=== PATIENT | male | born 1935 | race Caucasian/White ===

== ENCOUNTER 2022-05-17 06:22 | Emergency (ER) | payer MEDICARE ==
[2022-05-17 06:30] VITALS: PULSE 76
[2022-05-17 08:11] VITALS: BP 151/88
== END 2022-05-17 08:11 | disposition home or self-care (01) ==
LOC: CC.ED 06:22
DX: I10 Essential (primary) hypertension (principal); Z91.048 Other nonmedicinal substance allergy status
CPT/HCPCS: 99283; 99284

== ENCOUNTER → 2023-05-19 | Day surgery (SDC) | payer MEDICARE ==
[~2023-05-19] MED LIST: Ketorolac 30 MG/ML SDV ONE; Lidocaine 0.5% 50 ML SDV ONE; Midazolam 1 MG/ML 2 ML SDV ONE; Ondansetron 4 MG/2 ML SDV ONE; Phenylephrine 1% 10 MG/ML SDV ONE; Propofol 200 MG/20 ML SDV ONE; ceFAZolin 2 GM Vial IVPUSH ONE; fentaNYL 50 MCG/ML SDV ONE
[2023-05-19] MEDS: Lactated Ringers 1,000 ML IV SCH (10:12)
[2023-05-19] MEDS: ceFAZolin 2 GM Vial IVPUSH ONE (10:46)
[2023-05-19] MEDS: Lidocaine 1% 30 ML SDV SUBCUT ONE (11:35)
[2023-05-19 16:43] VITALS: BP 112/63; PULSE 77
== END ==
LOC: CC.SDS 09:50
PROVIDERS: ATTEND Surgery
DX: G56.01 Carpal tunnel syndrome, right upper limb (principal); I10 Essential (primary) hypertension; K21.9 Gastro-esophageal reflux disease without esophagitis; Z79.899 Other long term (current) drug therapy; Z87.891 Personal history of nicotine dependence; Z88.8 Allergy status to other drugs, medicaments and biological substances
CPT/HCPCS: 01810; 99100; J0690; J1885; J2250; J2371; J2405; J2704; J3010; J3490; J7120

== ENCOUNTER 2024-04-16 12:23 | Inpatient (IN) | payer MEDICARE ==
[2024-04-16] MEDS ORDERED: Docusate Sodium 100 MG Cap PO PRN (12:32)
[2024-04-16] MEDS ORDERED: Sodium Chloride 0.9% 10 ML Syringe FLUSH PRN (12:32)
[2024-04-16] MEDS ORDERED: Ondansetron 4 MG/2 ML SDV IV PRN (12:32)
[2024-04-16] MEDS ORDERED: Ondansetron 4 MG Tab.DIS PO PRN (12:32)
[2024-04-16] MEDS: Furosemide 40 MG/4 ML VIAL IVPUSH SCH (13:25)
[2024-04-16] MEDS: Apixaban 5 MG Tab PO SCH (14:27)
[2024-04-16] MEDS ORDERED: ACETAMINOPHEN PO PRN (19:08)
[2024-04-16] MEDS ORDERED: CAFFEINE PO PRN (19:08)
[2024-04-16] MEDS ORDERED: ASPIRIN PO PRN (19:08)
[2024-04-16] MEDS ORDERED: [UNRECOGNIZED DRUG - OTHER] PO PRN (19:08)
[2024-04-16] MEDS: cloNIDine 0.1 MG Tab PO SCH (19:47)
[2024-04-16] MEDS ORDERED: Pantoprazole 40 MG Tab.CR PO PRN (21:24)
[2024-04-16] MEDS: Acetaminophen 325 MG Tab PO PRN (22:40)
[2024-04-17 07:27] LABS: BASOPHILS ABSOLUTE AUTO 0.03 10^3/uL (0.00-0.50); BASOPHILS PERCENT AUTO 0.4 % (0-1); EOSINOPHILS ABSOLUTE AUTO 0.21 10^3/uL (0.00-1.50); HEMATOCRIT 44.8 % (42.0-52.0); HEMOGLOBIN 15.2 g/dL (14.0-18.0); IMMATURE GRAN ABSOLUTE AUTO 0.01 10^3/uL (0.00-0.49); IMMATURE GRAN PERCENT AUTO 0.1 % (0.0-4.9); LYMPHOCYTES ABSOLUTE AUTO 1.29 10^3/uL (0.60-5.00); LYMPHOCYTES PERCENT AUTO 18.7 % (24-44); MEAN CORPUSCULAR HEMOGLOBIN 30.6 pg (27.0-32.0); MEAN CORPUSCULAR HGB CONC 33.9 g/dL (32.0-36.0); MEAN CORPUSCULAR VOLUME 90.1 fL (83.0-97.0); MONOCYTES ABSOLUTE AUTO 0.73 10^3/uL (0.00-1.50); MONOCYTES PERCENT AUTO 10.6 % (0-10); NEUTROPHILS ABSOLUTE AUTO 4.62 x10^3/uL (1.80-8.00); NEUTROPHILS PERCENT AUTO 67.2 % (41-71); PLATELET COUNT,PLT 159 10^3/uL (150-400); RED BLOOD CELL COUNT 4.97 x10^6/uL (4.50-6.00); WHITE BLOOD CELL COUNT,WBC 6.9 10^3/uL (4.0-11.0)
[2024-04-17] MEDS: Losartan 100 MG Tab PO SCH (07:32)
[2024-04-17] MEDS: Multivitamin Tab PO SCH (07:32)
[2024-04-17] MEDS: Hydrochlorothiazide 25 MG Tab PO SCH (07:32)
[2024-04-17 08:54] LABS: ALBUMIN 3.2 g/dL (3.4-5.0); C-REACTIVE PROTEIN 1.35 mg/dL (<=0.50); CALCIUM 9.3 mg/dL (8.4-10.1); CREATININE 1.1 mg/dL (0.7-1.3); EST CRCL DRUG DOSING (CG) 45.77 mL/min; POTASSIUM,K 3.3 mEq/L (3.5-5.0); PROTEIN TOTAL,TP 6.9 g/dL (6.4-8.2)
[2024-04-17] MEDS: BORAGE PO SCH (09:53)
[2024-04-17] MEDS: FISH OIL PO SCH (09:53)
[2024-04-17] MEDS: FLAX PO SCH (09:53)
[2024-04-17] MEDS: [UNRECOGNIZED DRUG - OTHER] PO SCH (09:53)
[2024-04-17] MEDS: Potassium Chloride 20 MEQ Tab.ER PO SCH (13:35)
[2024-04-18 07:42] LABS: BASOPHILS ABSOLUTE AUTO 0.04 10^3/uL (0.00-0.50); BASOPHILS PERCENT AUTO 0.6 % (0-1); EOSINOPHILS ABSOLUTE AUTO 0.28 10^3/uL (0.00-1.50); EOSINOPHILS PERCENT AUTO 4.1 % (0-6); LYMPHOCYTES ABSOLUTE AUTO 1.38 10^3/uL (0.60-5.00); LYMPHOCYTES PERCENT AUTO 20.4 % (24-44); MEAN CORPUSCULAR HEMOGLOBIN 30.6 pg (27.0-32.0); MEAN CORPUSCULAR HGB CONC 34.1 g/dL (32.0-36.0); MEAN CORPUSCULAR VOLUME 89.8 fL (83.0-97.0); MONOCYTES ABSOLUTE AUTO 0.76 10^3/uL (0.00-1.50); MONOCYTES PERCENT AUTO 11.2 % (0-10); NEUTROPHILS PERCENT AUTO 63.7 % (41-71); PLATELET COUNT,PLT 157 10^3/uL (150-400); WHITE BLOOD CELL COUNT,WBC 6.8 10^3/uL (4.0-11.0)
[2024-04-18 07:53] LABS: ALBUMIN 2.9 g/dL (3.4-5.0); BILIRUBIN TOTAL 0.9 mg/dL (0.0-1.0); C-REACTIVE PROTEIN 1.04 mg/dL (<=0.50); CALCIUM 9.2 mg/dL (8.4-10.1); CREATININE 1.1 mg/dL (0.7-1.3); EST CRCL DRUG DOSING (CG) 45.77 mL/min; POTASSIUM,K 3.4 mEq/L (3.5-5.0); PROTEIN TOTAL,TP 6.2 g/dL (6.4-8.2)
[2024-04-18] MEDS: Furosemide 40 MG/4 ML VIAL IVPUSH SCH (11:57)
[2024-04-19 08:01] LABS: BASOPHILS ABSOLUTE AUTO 0.05 10^3/uL (0.00-0.50); BASOPHILS PERCENT AUTO 0.7 % (0-1); EOSINOPHILS ABSOLUTE AUTO 0.34 10^3/uL (0.00-1.50); EOSINOPHILS PERCENT AUTO 5.1 % (0-6); HEMATOCRIT 43.4 % (42.0-52.0); HEMOGLOBIN 14.8 g/dL (14.0-18.0); IMMATURE GRAN ABSOLUTE AUTO 0.02 10^3/uL (0.00-0.49); IMMATURE GRAN PERCENT AUTO 0.3 % (0.0-4.9); LYMPHOCYTES ABSOLUTE AUTO 1.64 10^3/uL (0.60-5.00); LYMPHOCYTES PERCENT AUTO 24.5 % (24-44); MEAN CORPUSCULAR HEMOGLOBIN 30.8 pg (27.0-32.0); MEAN CORPUSCULAR HGB CONC 34.1 g/dL (32.0-36.0); MEAN CORPUSCULAR VOLUME 90.4 fL (83.0-97.0); MONOCYTES ABSOLUTE AUTO 0.67 10^3/uL (0.00-1.50); NEUTROPHILS ABSOLUTE AUTO 3.97 x10^3/uL (1.80-8.00); NEUTROPHILS PERCENT AUTO 59.4 % (41-71); PLATELET COUNT,PLT 162 10^3/uL (150-400); WHITE BLOOD CELL COUNT,WBC 6.7 10^3/uL (4.0-11.0)
[2024-04-19 08:17] LABS: ALBUMIN 2.9 g/dL (3.4-5.0); BILIRUBIN TOTAL 0.7 mg/dL (0.0-1.0); C-REACTIVE PROTEIN 0.73 mg/dL (<=0.50); CALCIUM 9.2 mg/dL (8.4-10.1); CREATININE 1.3 mg/dL (0.7-1.3); EST CRCL DRUG DOSING (CG) 38.73 mL/min; POTASSIUM,K 3.6 mEq/L (3.5-5.0); PROTEIN TOTAL,TP 6.3 g/dL (6.4-8.2)
[2024-04-19 15:48] VITALS: BP 111/69; PULSE 81
== END 2024-04-19 15:10 | disposition home or self-care (01) | DRG 291 ==
LOC: CC.MS 12:23 → UNDOADMIN 12:23 → CC.MS 12:32
PROVIDERS: ADMIT Physician Assistant Medical; ATTEND Physician Assistant Medical
DX: I11.0 Hypertensive heart disease with heart failure (principal); I50.31 Acute diastolic (congestive) heart failure; I48.19 Other persistent atrial fibrillation; I48.92 Unspecified atrial flutter; K21.9 Gastro-esophageal reflux disease without esophagitis; R79.89 Other specified abnormal findings of blood chemistry; I35.1 Nonrheumatic aortic (valve) insufficiency; Z88.8 Allergy status to other drugs, medicaments and biological substances; Z79.82 Long term (current) use of aspirin; Z79.899 Other long term (current) drug therapy; Z98.890 Other specified postprocedural states
CPT/HCPCS: 36415; 80053; 83880; 84484; 85025; 86140; 93005; 93306; 97110-GP; 97161-GP; A9270-GY; J1940

== ENCOUNTER 2024-08-18 14:35 | Emergency (ER) | payer MEDICARE ==
[2024-08-18 14:52] VITALS: BP 125/58; PULSE 64
[2024-08-18] MEDS: Take Home: Sulfamethoxazole/Trimethoprim 800-160 MG Tab, 6 Tab Pack PO ONE (14:59)
[2024-08-18] MEDS: Nystatin Crm 30 GM Tube TOP STA (15:24)
[2024-08-18] MEDS ORDERED: Nystatin Crm 30 GM Tube TOP SCH (20:00)
== END 2024-08-18 15:46 | disposition home or self-care (01) ==
LOC: CC.ED 14:35
DX: L08.9 Local infection of the skin and subcutaneous tissue, unspecified (principal); N48.29 Other inflammatory disorders of penis; I10 Essential (primary) hypertension; I48.91 Unspecified atrial fibrillation; Z79.899 Other long term (current) drug therapy; Z88.8 Allergy status to other drugs, medicaments and biological substances
CPT/HCPCS: 99283; A9270

== ENCOUNTER 2024-08-20 11:03 | Inpatient (IN) | payer MEDICARE ==
[2024-08-20] MEDS: Albuterol/Ipratropium 3.0-0.5 MG/3 ML Neb Soln NEB ONE (11:09)
[2024-08-20] MEDS: Albuterol/Ipratropium 3.0-0.5 MG/3 ML Neb Soln ONE (11:09)
[2024-08-20] MEDS: methylPREDNISolone Sodium Succinate 125 MG/2 ML SDV IVPUSH STA (11:17)
[2024-08-20 11:25] LABS: BASOPHILS ABSOLUTE AUTO 0.03 10^3/uL (0.00-0.50); BASOPHILS PERCENT AUTO 0.3 % (0-1); EOSINOPHILS ABSOLUTE AUTO 0.02 10^3/uL (0.00-1.50); EOSINOPHILS PERCENT AUTO 0.2 % (0-6); HEMATOCRIT 46.5 % (42.0-52.0); HEMOGLOBIN 15.5 g/dL (14.0-18.0); IMMATURE GRAN ABSOLUTE AUTO 0.03 10^3/uL (0.00-0.49); IMMATURE GRAN PERCENT AUTO 0.3 % (0.0-4.9); LYMPHOCYTES ABSOLUTE AUTO 0.82 10^3/uL (0.60-5.00); LYMPHOCYTES PERCENT AUTO 6.9 % (24-44); MEAN CORPUSCULAR HEMOGLOBIN 30.9 pg (27.0-32.0); MEAN CORPUSCULAR HGB CONC 33.3 g/dL (32.0-36.0); MEAN CORPUSCULAR VOLUME 92.6 fL (83.0-97.0); MONOCYTES ABSOLUTE AUTO 0.69 10^3/uL (0.00-1.50); MONOCYTES PERCENT AUTO 5.8 % (0-10); NEUTROPHILS ABSOLUTE AUTO 10.35 x10^3/uL (1.80-8.00); NEUTROPHILS PERCENT AUTO 86.5 % (41-71); PLATELET COUNT,PLT 199 10^3/uL (150-400); RED BLOOD CELL COUNT 5.02 x10^6/uL (4.50-6.00); WHITE BLOOD CELL COUNT,WBC 11.9 10^3/uL (4.0-11.0)
[2024-08-20 11:46] LABS: ALBUMIN 3.3 g/dL (3.4-5.0); BILIRUBIN TOTAL 0.8 mg/dL (0.0-1.0); C-REACTIVE PROTEIN 3.21 mg/dL (<=0.50); CALCIUM 10.1 mg/dL (8.4-10.1); CREATININE 1.6 mg/dL (0.7-1.3); EST CRCL DRUG DOSING (CG) 32.53 mL/min; POTASSIUM,K 4.8 mEq/L (3.5-5.0); PROTEIN TOTAL,TP 7.5 g/dL (6.4-8.2)
[2024-08-20] MEDS: Furosemide 40 MG/4 ML VIAL IVPUSH ONE (11:57)
[2024-08-20] MEDS: Ondansetron 4 MG/2 ML SDV IVPUSH ONE (12:05)
[2024-08-20 12:22] LABS: CORONAVIRUS COVID-19 NAA NEGATIVE (NEGATIVE); INFLUENZA A NAA NEGATIVE (NEGATIVE); INFLUENZA B NAA NEGATIVE (NEGATIVE); RESPIRATORY SYNCYTIAL VIR NAA NEGATIVE (NEGATIVE)
[2024-08-20] MEDS: Iopamidol 755 Mg/ML 100 ML Bottle IVPUSH ONE (12:30)
[2024-08-20] MEDS ORDERED: Sodium Chloride 0.9% 10 ML Syringe FLUSH PRN (13:19)
[2024-08-20 15:29] LABS: INR 1.16 (0.92-1.18); PROTHROMBIN TIME 12.1 SEC (9.3-11.3)
[2024-08-20] MEDS: Warfarin 5 MG Tab PO ONE (16:04)
[2024-08-20] MEDS: Furosemide 40 MG/4 ML VIAL IVPUSH SCH (16:04)
[2024-08-20] MEDS: Albuterol/Ipratropium 3.0-0.5 MG/3 ML Neb Soln NEB PRN (16:15)
[2024-08-20] MEDS: Sulfamethoxazole/Trimethoprim 800-160 MG Tab PO SCH (19:58)
[2024-08-21] MEDS: Ondansetron 4 MG Tab.DIS PO PRN (01:20)
[2024-08-21 07:40] LABS: BASOPHILS ABSOLUTE AUTO 0.01 10^3/uL (0.00-0.50); BASOPHILS PERCENT AUTO 0.1 % (0-1); HEMATOCRIT 45.5 % (42.0-52.0); HEMOGLOBIN 15.3 g/dL (14.0-18.0); IMMATURE GRAN ABSOLUTE AUTO 0.05 10^3/uL (0.00-0.49); IMMATURE GRAN PERCENT AUTO 0.4 % (0.0-4.9); LYMPHOCYTES ABSOLUTE AUTO 0.56 10^3/uL (0.60-5.00); LYMPHOCYTES PERCENT AUTO 4.2 % (24-44); MEAN CORPUSCULAR HGB CONC 33.6 g/dL (32.0-36.0); MEAN CORPUSCULAR VOLUME 92.3 fL (83.0-97.0); MONOCYTES ABSOLUTE AUTO 0.69 10^3/uL (0.00-1.50); MONOCYTES PERCENT AUTO 5.1 % (0-10); NEUTROPHILS ABSOLUTE AUTO 12.17 x10^3/uL (1.80-8.00); NEUTROPHILS PERCENT AUTO 90.2 % (41-71); PLATELET COUNT,PLT 170 10^3/uL (150-400); RED BLOOD CELL COUNT 4.93 x10^6/uL (4.50-6.00); WHITE BLOOD CELL COUNT,WBC 13.5 10^3/uL (4.0-11.0)
[2024-08-21 07:48] LABS: INR 1.22 (0.92-1.18); PROTHROMBIN TIME 12.7 SEC (9.3-11.3)
[2024-08-21] MEDS: Metoprolol Succinate 100 MG Tab.ER PO SCH (07:48)
[2024-08-21] MEDS: Lactobacillus Rhamnosus GG (Probiotic) Cap PO SCH (07:48)
[2024-08-21] MEDS: Losartan 100 MG Tab PO SCH (07:48)
[2024-08-21] MEDS: Multivitamin Tab PO SCH (07:48)
[2024-08-21] MEDS: Potassium Chloride 20 MEQ Tab.ER PO SCH (07:48)
[2024-08-21] MEDS: Ascorbic Acid 500 MG Tab PO SCH (07:49)
[2024-08-21] MEDS: Cholecalciferol (Vitamin D3) 25 MCG Tab PO SCH (07:49)
[2024-08-21] MEDS: Calcium Carbonate 500 MG Tab.Chew PO SCH (07:49)
[2024-08-21 08:32] LABS: ALBUMIN 3.2 g/dL (3.4-5.0); BILIRUBIN TOTAL 0.5 mg/dL (0.0-1.0); C-REACTIVE PROTEIN 2.75 mg/dL (<=0.50); CALCIUM 9.6 mg/dL (8.4-10.1); CREATININE 1.6 mg/dL (0.7-1.3); EST CRCL DRUG DOSING (CG) 32.53 mL/min; POTASSIUM,K 4.6 mEq/L (3.5-5.0); PROTEIN TOTAL,TP 7.4 g/dL (6.4-8.2)
[2024-08-21] MEDS: Ondansetron 4 MG/2 ML SDV IV PRN (10:15)
[2024-08-21] MEDS: Warfarin 5 MG Tab PO ONE (11:05)
[2024-08-21] MEDS: Meclizine 12.5 MG Tab PO SCH (19:56)
[2024-08-22 07:50] LABS: INR 1.7 (0.92-1.18); PROTHROMBIN TIME 17.4 SEC (9.3-11.3)
[2024-08-22 07:51] LABS: BASOPHILS ABSOLUTE AUTO 0.02 10^3/uL (0.00-0.50); BASOPHILS PERCENT AUTO 0.1 % (0-1); EOSINOPHILS ABSOLUTE AUTO 0.02 10^3/uL (0.00-1.50); EOSINOPHILS PERCENT AUTO 0.1 % (0-6); HEMATOCRIT 43.6 % (42.0-52.0); HEMOGLOBIN 14.4 g/dL (14.0-18.0); IMMATURE GRAN ABSOLUTE AUTO 0.07 10^3/uL (0.00-0.49); IMMATURE GRAN PERCENT AUTO 0.5 % (0.0-4.9); LYMPHOCYTES ABSOLUTE AUTO 1.16 10^3/uL (0.60-5.00); LYMPHOCYTES PERCENT AUTO 8.1 % (24-44); MEAN CORPUSCULAR HEMOGLOBIN 31.1 pg (27.0-32.0); MEAN CORPUSCULAR VOLUME 94.2 fL (83.0-97.0); MONOCYTES ABSOLUTE AUTO 1.14 10^3/uL (0.00-1.50); NEUTROPHILS ABSOLUTE AUTO 11.86 x10^3/uL (1.80-8.00); NEUTROPHILS PERCENT AUTO 83.2 % (41-71); PLATELET COUNT,PLT 192 10^3/uL (150-400); RED BLOOD CELL COUNT 4.63 x10^6/uL (4.50-6.00); WHITE BLOOD CELL COUNT,WBC 14.3 10^3/uL (4.0-11.0)
[2024-08-22 08:03] LABS: ALBUMIN 2.9 g/dL (3.4-5.0); BILIRUBIN TOTAL 0.6 mg/dL (0.0-1.0); C-REACTIVE PROTEIN 1.49 mg/dL (<=0.50); CALCIUM 9.9 mg/dL (8.4-10.1); CREATININE 1.5 mg/dL (0.7-1.3); EST CRCL DRUG DOSING (CG) 34.7 mL/min; POTASSIUM,K 4.9 mEq/L (3.5-5.0); PROTEIN TOTAL,TP 6.8 g/dL (6.4-8.2)
[2024-08-22] MEDS: Acetaminophen 325 MG Tab PO PRN (09:06)
[2024-08-22] MEDS: Warfarin 5 MG Tab PO ONE (15:47)
[2024-08-23 06:58] LABS: BASOPHILS ABSOLUTE AUTO 0.02 10^3/uL (0.00-0.50); BASOPHILS PERCENT AUTO 0.2 % (0-1); EOSINOPHILS ABSOLUTE AUTO 0.08 10^3/uL (0.00-1.50); EOSINOPHILS PERCENT AUTO 0.6 % (0-6); HEMATOCRIT 42.1 % (42.0-52.0); HEMOGLOBIN 14.3 g/dL (14.0-18.0); IMMATURE GRAN ABSOLUTE AUTO 0.04 10^3/uL (0.00-0.49); IMMATURE GRAN PERCENT AUTO 0.3 % (0.0-4.9); LYMPHOCYTES ABSOLUTE AUTO 1.03 10^3/uL (0.60-5.00); LYMPHOCYTES PERCENT AUTO 7.8 % (24-44); MEAN CORPUSCULAR HEMOGLOBIN 31.4 pg (27.0-32.0); MEAN CORPUSCULAR VOLUME 92.5 fL (83.0-97.0); MONOCYTES ABSOLUTE AUTO 1.18 10^3/uL (0.00-1.50); NEUTROPHILS ABSOLUTE AUTO 10.82 x10^3/uL (1.80-8.00); NEUTROPHILS PERCENT AUTO 82.1 % (41-71); PLATELET COUNT,PLT 187 10^3/uL (150-400); RED BLOOD CELL COUNT 4.55 x10^6/uL (4.50-6.00); WHITE BLOOD CELL COUNT,WBC 13.2 10^3/uL (4.0-11.0)
[2024-08-23] MEDS: Metoprolol Succinate 100 MG Tab.ER PO SCH (07:35)
[2024-08-23 07:41] LABS: INR 1.8 (0.92-1.18); PROTHROMBIN TIME 18.4 SEC (9.3-11.3)
[2024-08-23 08:05] LABS: ALBUMIN 2.9 g/dL (3.4-5.0); BILIRUBIN TOTAL 0.8 mg/dL (0.0-1.0); C-REACTIVE PROTEIN 1.97 mg/dL (<=0.50); CREATININE 1.5 mg/dL (0.7-1.3); EST CRCL DRUG DOSING (CG) 34.7 mL/min; POTASSIUM,K 4.4 mEq/L (3.5-5.0); PROTEIN TOTAL,TP 6.9 g/dL (6.4-8.2)
[2024-08-23] MEDS: Cyclobenzaprine 10 MG Tab PO PRN (08:54)
[2024-08-23] MEDS: Lidocaine 4% Patch TOP ONE (08:55)
[2024-08-23] MEDS: Bumetanide 2.5 MG/10 ML MDV IVPUSH ONE (09:09)
[2024-08-23] MEDS: Albumin Human 25 GM in Premix Bag 1 BAG IV ONE (09:14)
[2024-08-23] MEDS: HYDROmorphone 0.5 MG/0.5 ML Syringe IVPUSH ONE (09:40)
[2024-08-23 10:29] LABS: APPEARANCE,URINE CLEAR (CLEAR); BILIRUBIN,URINE NEGATIVE (NEGATIVE); COLOR,URINE YELLOW (YELLOW); GLUCOSE,URINE NEGATIVE (NEGATIVE); KETONES,URINE NEGATIVE (NEGATIVE); LEUKOCYTE ESTERASE,URINE NEGATIVE (NEGATIVE); NITRITE,URINE NEGATIVE (NEGATIVE); OCCULT BLOOD,URINE NEGATIVE (NEGATIVE); PH,URINE 6.5 (4.5-8.0); PROTEIN,URINE NEGATIVE (NEGATIVE); UROBILINOGEN,URINE 0.2 EU/dL (0.2-1.0)
[2024-08-23] MEDS: Warfarin 5 MG Tab PO SCH (11:46)
[2024-08-23] MEDS ORDERED: Meclizine 12.5 MG Tab PO PRN (14:38)
[2024-08-23] MEDS: Bumetanide 2.5 MG/10 ML MDV IVPUSH SCH (16:08)
[2024-08-23] MEDS: Diazepam 5 MG Tab PO PRN (16:37)
[2024-08-23] MEDS ORDERED: OLANZapine 10 MG Vial IM PRN (19:34)
[2024-08-23] MEDS: OLANZapine 10 MG Vial IM ONE (19:44)
[2024-08-24 07:20] VITALS: PULSE 78
[2024-08-24] MEDS: Lidocaine 4% Patch TOP SCH (07:22)
[2024-08-24 07:33] VITALS: BP 125/65
[2024-08-24 07:39] LABS: BASOPHILS ABSOLUTE AUTO 0.03 10^3/uL (0.00-0.50); BASOPHILS PERCENT AUTO 0.2 % (0-1); EOSINOPHILS ABSOLUTE AUTO 0.05 10^3/uL (0.00-1.50); EOSINOPHILS PERCENT AUTO 0.4 % (0-6); HEMATOCRIT 41.2 % (42.0-52.0); HEMOGLOBIN 13.9 g/dL (14.0-18.0); IMMATURE GRAN ABSOLUTE AUTO 0.04 10^3/uL (0.00-0.49); IMMATURE GRAN PERCENT AUTO 0.3 % (0.0-4.9); LYMPHOCYTES ABSOLUTE AUTO 0.94 10^3/uL (0.60-5.00); LYMPHOCYTES PERCENT AUTO 7.1 % (24-44); MEAN CORPUSCULAR HEMOGLOBIN 31.1 pg (27.0-32.0); MEAN CORPUSCULAR HGB CONC 33.7 g/dL (32.0-36.0); MEAN CORPUSCULAR VOLUME 92.2 fL (83.0-97.0); MONOCYTES ABSOLUTE AUTO 1.35 10^3/uL (0.00-1.50); MONOCYTES PERCENT AUTO 10.3 % (0-10); NEUTROPHILS ABSOLUTE AUTO 10.75 x10^3/uL (1.80-8.00); NEUTROPHILS PERCENT AUTO 81.7 % (41-71); PLATELET COUNT,PLT 177 10^3/uL (150-400); RED BLOOD CELL COUNT 4.47 x10^6/uL (4.50-6.00); WHITE BLOOD CELL COUNT,WBC 13.2 10^3/uL (4.0-11.0)
[2024-08-24 07:52] LABS: INR 2.4 (0.92-1.18); PROTHROMBIN TIME 24.2 SEC (9.3-11.3)
[2024-08-24 08:07] LABS: CALCIUM 9.9 mg/dL (8.4-10.1); CREATININE 1.6 mg/dL (0.7-1.3); EST CRCL DRUG DOSING (CG) 32.53 mL/min; MAGNESIUM 2.6 mg/dL (1.8-2.4); POTASSIUM,K 4.1 mEq/L (3.5-5.0)
== END 2024-08-24 11:00 | disposition swing bed (61) | DRG 291 ==
LOC: CC.ED 11:03 → UNDOADMIN 12:12 → CC.MS 12:12 → UNDODISIN 08-22 11:37 → CC.MS 08-24 09:04 → UNDODISIN 08-24 10:25
PROVIDERS: ADMIT Physician Assistant Medical; ATTEND Physician Assistant Medical
DX: I11.0 Hypertensive heart disease with heart failure (principal); I50.33 Acute on chronic diastolic (congestive) heart failure; I50.9 Heart failure, unspecified; K21.9 Gastro-esophageal reflux disease without esophagitis; Z91.048 Other nonmedicinal substance allergy status; I25.10 Atherosclerotic heart disease of native coronary artery without angina pectoris; I48.0 Paroxysmal atrial fibrillation; Z51.5 Encounter for palliative care; Z87.891 Personal history of nicotine dependence; Z79.899 Other long term (current) drug therapy; Z88.8 Allergy status to other drugs, medicaments and biological substances; Z98.890 Other specified postprocedural states; Z66 Do not resuscitate
CPT/HCPCS: 0241U; 36415; 70450; 71045; 71275; 72100; 72125; 72131; 80048; 80053; 81003; 83735; 83880; 84484; 85025; 85379; 85610; 86140; 93005; 93010; 94640; 96374; 96375; 97110-GP; 97161-GP; 99285-25; A9270-GY; J1939; J1940; J2359; J2405; J2919; J3360; P9047; Q9967

== ENCOUNTER 2024-08-24 10:38 | Inpatient (IN) | payer MEDICAID, MEDICARE ==
[2024-08-24] MEDS ORDERED: Ondansetron 4 MG/2 ML SDV IV PRN (11:25)
[2024-08-24] MEDS ORDERED: OLANZapine 10 MG Vial IM PRN (11:25)
[2024-08-24] MEDS ORDERED: Meclizine 12.5 MG Tab PO PRN (11:25)
[2024-08-24] MEDS ORDERED: Sodium Chloride 0.9% 10 ML Syringe FLUSH PRN (11:25)
[2024-08-24] MEDS: Warfarin 5 MG Tab PO SCH (12:13)
[2024-08-24] MEDS: Bumetanide 1 MG Tab PO SCH (16:21)
[2024-08-24] MEDS: risperiDONE 0.25 MG Tab PO SCH (19:28)
[2024-08-25] MEDS: Calcium Carbonate 500 MG Tab.Chew PO SCH (07:38)
[2024-08-25] MEDS: Multivitamin Tab PO SCH (07:38)
[2024-08-25] MEDS: Lactobacillus Rhamnosus GG (Probiotic) Cap PO SCH (07:38)
[2024-08-25] MEDS: Metoprolol Succinate 100 MG Tab.ER PO SCH (07:39)
[2024-08-25] MEDS: Ascorbic Acid 500 MG Tab PO SCH (07:39)
[2024-08-25] MEDS: Potassium Chloride 20 MEQ Tab.ER PO SCH (07:40)
[2024-08-25] MEDS: Lidocaine 4% Patch TOP SCH (07:40)
[2024-08-25] MEDS: Losartan 100 MG Tab PO SCH (07:40)
[2024-08-25] MEDS: Cholecalciferol (Vitamin D3) 25 MCG Tab PO SCH (07:40)
[2024-08-25 08:07] LABS: INR 3.14 (0.92-1.18); PROTHROMBIN TIME 31.2 SEC (9.3-11.3)
[2024-08-25] MEDS: Warfarin 2.5 MG Tab PO ONE (12:17)
[2024-08-25] MEDS: Polyethylene Glycol 3350 Powder 17 GM Packet PO SCH (12:37)
[2024-08-26] MEDS: Acetaminophen 325 MG Tab PO PRN (01:22)
[2024-08-26 08:27] LABS: INR 2.14 (0.92-1.18); PROTHROMBIN TIME 21.6 SEC (9.3-11.3)
[2024-08-26] MEDS: Albuterol/Ipratropium 3.0-0.5 MG/3 ML Neb Soln NEB PRN (10:49)
[2024-08-26] MEDS: Warfarin** 1 MG TABLET PO ONE (12:41)
[2024-08-27] MEDS: Diazepam 5 MG Tab PO PRN (05:26)
[2024-08-27 08:06] LABS: INR 1.91 (0.92-1.18); PROTHROMBIN TIME 19.4 SEC (9.3-11.3)
[2024-08-27 08:15] LABS: BASOPHILS ABSOLUTE AUTO 0.03 10^3/uL (0.00-0.50); BASOPHILS PERCENT AUTO 0.3 % (0-1); EOSINOPHILS ABSOLUTE AUTO 0.21 10^3/uL (0.00-1.50); EOSINOPHILS PERCENT AUTO 2.1 % (0-6); HEMATOCRIT 34.5 % (42.0-52.0); HEMOGLOBIN 11.5 g/dL (14.0-18.0); IMMATURE GRAN ABSOLUTE AUTO 0.04 10^3/uL (0.00-0.49); IMMATURE GRAN PERCENT AUTO 0.4 % (0.0-4.9); LYMPHOCYTES ABSOLUTE AUTO 0.91 10^3/uL (0.60-5.00); MEAN CORPUSCULAR HEMOGLOBIN 31.3 pg (27.0-32.0); MEAN CORPUSCULAR HGB CONC 33.3 g/dL (32.0-36.0); MONOCYTES ABSOLUTE AUTO 0.78 10^3/uL (0.00-1.50); MONOCYTES PERCENT AUTO 7.7 % (0-10); NEUTROPHILS PERCENT AUTO 80.5 % (41-71); PLATELET COUNT,PLT 188 10^3/uL (150-400); RED BLOOD CELL COUNT 3.67 x10^6/uL (4.50-6.00); WHITE BLOOD CELL COUNT,WBC 10.1 10^3/uL (4.0-11.0)
[2024-08-27 08:25] LABS: CALCIUM 9.7 mg/dL (8.4-10.1); CREATININE 1.8 mg/dL (0.7-1.3); EST CRCL DRUG DOSING (CG) 26.09 mL/min; POTASSIUM,K 4.2 mEq/L (3.5-5.0)
[2024-08-27] MEDS: Warfarin 2 MG Tab PO ONE (12:29)
[2024-08-28 07:58] LABS: BASOPHILS ABSOLUTE AUTO 0.04 10^3/uL (0.00-0.50); BASOPHILS PERCENT AUTO 0.4 % (0-1); EOSINOPHILS PERCENT AUTO 2.9 % (0-6); HEMATOCRIT 38.3 % (42.0-52.0); HEMOGLOBIN 12.6 g/dL (14.0-18.0); IMMATURE GRAN ABSOLUTE AUTO 0.06 10^3/uL (0.00-0.49); IMMATURE GRAN PERCENT AUTO 0.6 % (0.0-4.9); LYMPHOCYTES ABSOLUTE AUTO 1.44 10^3/uL (0.60-5.00); LYMPHOCYTES PERCENT AUTO 14.1 % (24-44); MEAN CORPUSCULAR HEMOGLOBIN 31.1 pg (27.0-32.0); MEAN CORPUSCULAR HGB CONC 32.9 g/dL (32.0-36.0); MEAN CORPUSCULAR VOLUME 94.6 fL (83.0-97.0); MONOCYTES PERCENT AUTO 9.8 % (0-10); NEUTROPHILS ABSOLUTE AUTO 7.37 x10^3/uL (1.80-8.00); NEUTROPHILS PERCENT AUTO 72.2 % (41-71); PLATELET COUNT,PLT 229 10^3/uL (150-400); RED BLOOD CELL COUNT 4.05 x10^6/uL (4.50-6.00); WHITE BLOOD CELL COUNT,WBC 10.2 10^3/uL (4.0-11.0)
[2024-08-28 08:03] LABS: INR 1.9 (0.92-1.18); PROTHROMBIN TIME 18.8 SEC (9.3-11.3)
[2024-08-28] MEDS: Warfarin 2 MG Tab PO SCH (11:58)
[2024-08-28] MEDS: Warfarin** 1 MG TABLET PO ONE (12:00)
[2024-08-29 07:30] LABS: INR 1.77 (0.92-1.18); PROTHROMBIN TIME 17.7 SEC (9.3-11.3)
[2024-08-29] MEDS: Warfarin 5 MG Tab PO SCH (12:19)
[2024-08-30 08:18] LABS: INR 1.83 (0.92-1.18); PROTHROMBIN TIME 18.2 SEC (9.3-11.3)
[2024-08-30] MEDS: Apixaban 5 MG Tab PO ONE (10:11)
[2024-08-30] MEDS: Apixaban 5 MG Tab PO SCH (19:36)
[2024-08-31] MEDS: Metoprolol Succinate 25 MG Tab.ER PO SCH (08:11)
[2024-08-31] MEDS: Sodium Chloride 0.9% 10 ML Syringe FLUSH PRN (08:14)
[2024-08-31] MEDS: Ondansetron 4 MG Tab.DIS PO PRN (13:15)
[2024-09-01 08:11] LABS: ALBUMIN 2.6 g/dL (3.4-5.0); BILIRUBIN TOTAL 0.7 mg/dL (0.0-1.0); CALCIUM 9.9 mg/dL (8.4-10.1); EST CRCL DRUG DOSING (CG) 23.48 mL/min; PROTEIN TOTAL,TP 6.8 g/dL (6.4-8.2)
[2024-09-03] MEDS: Melatonin 3 MG Tab PO PRN (19:58)
[2024-09-05 09:03] LABS: BASOPHILS ABSOLUTE AUTO 0.05 10^3/uL (0.00-0.50); BASOPHILS PERCENT AUTO 0.6 % (0-1); EOSINOPHILS ABSOLUTE AUTO 0.18 10^3/uL (0.00-1.50); EOSINOPHILS PERCENT AUTO 2.1 % (0-6); HEMATOCRIT 35.6 % (42.0-52.0); HEMOGLOBIN 11.4 g/dL (14.0-18.0); IMMATURE GRAN ABSOLUTE AUTO 0.02 10^3/uL (0.00-0.49); IMMATURE GRAN PERCENT AUTO 0.2 % (0.0-4.9); LYMPHOCYTES ABSOLUTE AUTO 0.97 10^3/uL (0.60-5.00); LYMPHOCYTES PERCENT AUTO 11.5 % (24-44); MEAN CORPUSCULAR HEMOGLOBIN 30.7 pg (27.0-32.0); MONOCYTES ABSOLUTE AUTO 0.46 10^3/uL (0.00-1.50); MONOCYTES PERCENT AUTO 5.5 % (0-10); NEUTROPHILS ABSOLUTE AUTO 6.74 x10^3/uL (1.80-8.00); NEUTROPHILS PERCENT AUTO 80.1 % (41-71); PLATELET COUNT,PLT 218 10^3/uL (150-400); RED BLOOD CELL COUNT 3.71 x10^6/uL (4.50-6.00); WHITE BLOOD CELL COUNT,WBC 8.4 10^3/uL (4.0-11.0)
[2024-09-05 09:22] LABS: ALBUMIN 2.6 g/dL (3.4-5.0); BILIRUBIN TOTAL 0.6 mg/dL (0.0-1.0); CALCIUM 9.8 mg/dL (8.4-10.1); EST CRCL DRUG DOSING (CG) 23.48 mL/min; POTASSIUM,K 3.9 mEq/L (3.5-5.0); PROTEIN TOTAL,TP 6.6 g/dL (6.4-8.2)
[2024-09-05] MEDS: Spironolactone 25 MG Tab PO ONE (13:18)
[2024-09-05] MEDS: Oxyquinoline/Emollient 0.3% Oint 4 OZ Canister TOP PRN (16:27)
[2024-09-05 16:41] LABS: APPEARANCE,URINE CLEAR (CLEAR); BILIRUBIN,URINE NEGATIVE (NEGATIVE); COLOR,URINE YELLOW (YELLOW); GLUCOSE,URINE NEGATIVE (NEGATIVE); KETONES,URINE NEGATIVE (NEGATIVE); LEUKOCYTE ESTERASE,URINE NEGATIVE (NEGATIVE); NITRITE,URINE NEGATIVE (NEGATIVE); OCCULT BLOOD,URINE SMALL (NEGATIVE); PROTEIN,URINE NEGATIVE (NEGATIVE); UROBILINOGEN,URINE 0.2 EU/dL (0.2-1.0)
[2024-09-05 16:53] LABS: BACTERIA,URINE RARE /HPF (NOT SEEN); EPITHELIAL CELLS,URINE NOT SEEN /HPF (NOT SEEN); MUCUS,URINE NOT SEEN /HPF (NOT SEEN); WBC,URINE 0-5 /HPF (0-5)
[2024-09-06 07:34] LABS: BASOPHILS ABSOLUTE AUTO 0.04 10^3/uL (0.00-0.50); BASOPHILS PERCENT AUTO 0.3 % (0-1); EOSINOPHILS ABSOLUTE AUTO 0.11 10^3/uL (0.00-1.50); EOSINOPHILS PERCENT AUTO 0.8 % (0-6); HEMATOCRIT 37.1 % (42.0-52.0); HEMOGLOBIN 12.1 g/dL (14.0-18.0); IMMATURE GRAN ABSOLUTE AUTO 0.04 10^3/uL (0.00-0.49); IMMATURE GRAN PERCENT AUTO 0.3 % (0.0-4.9); LYMPHOCYTES ABSOLUTE AUTO 1.03 10^3/uL (0.60-5.00); LYMPHOCYTES PERCENT AUTO 7.5 % (24-44); MEAN CORPUSCULAR HEMOGLOBIN 31.5 pg (27.0-32.0); MEAN CORPUSCULAR HGB CONC 32.6 g/dL (32.0-36.0); MEAN CORPUSCULAR VOLUME 96.6 fL (83.0-97.0); MONOCYTES ABSOLUTE AUTO 1.06 10^3/uL (0.00-1.50); MONOCYTES PERCENT AUTO 7.8 % (0-10); NEUTROPHILS ABSOLUTE AUTO 11.37 x10^3/uL (1.80-8.00); NEUTROPHILS PERCENT AUTO 83.3 % (41-71); PLATELET COUNT,PLT 268 10^3/uL (150-400); RED BLOOD CELL COUNT 3.84 x10^6/uL (4.50-6.00); WHITE BLOOD CELL COUNT,WBC 13.7 10^3/uL (4.0-11.0)
[2024-09-06 07:54] LABS: CALCIUM 10.3 mg/dL (8.4-10.1); EST CRCL DRUG DOSING (CG) 23.48 mL/min; POTASSIUM,K 5.1 mEq/L (3.5-5.0)
[2024-09-06] MEDS: Spironolactone 25 MG Tab PO SCH (08:17)
[2024-09-06] MEDS: Piperacillin/Tazobactam 4.5 GM in Sodium Chloride 0.9% 100 ML IV ONE (14:26)
[2024-09-06] MEDS: VANCOmycin 1.25 GM/250 ML 1.25 GM in Premix Bag 1 BAG IV ONE (15:10)
[2024-09-06] MEDS: Piperacillin/Tazobactam 4.5 GM in Sodium Chloride 0.9% 100 ML IV SCH (18:13)
[2024-09-07 07:41] LABS: BASOPHILS ABSOLUTE AUTO 0.05 10^3/uL (0.00-0.50); BASOPHILS PERCENT AUTO 0.6 % (0-1); EOSINOPHILS PERCENT AUTO 2.3 % (0-6); HEMATOCRIT 34.4 % (42.0-52.0); HEMOGLOBIN 11.1 g/dL (14.0-18.0); IMMATURE GRAN ABSOLUTE AUTO 0.03 10^3/uL (0.00-0.49); IMMATURE GRAN PERCENT AUTO 0.3 % (0.0-4.9); LYMPHOCYTES ABSOLUTE AUTO 0.77 10^3/uL (0.60-5.00); LYMPHOCYTES PERCENT AUTO 8.9 % (24-44); MEAN CORPUSCULAR HEMOGLOBIN 31.4 pg (27.0-32.0); MEAN CORPUSCULAR HGB CONC 32.3 g/dL (32.0-36.0); MEAN CORPUSCULAR VOLUME 97.5 fL (83.0-97.0); MONOCYTES ABSOLUTE AUTO 0.69 10^3/uL (0.00-1.50); NEUTROPHILS ABSOLUTE AUTO 6.87 x10^3/uL (1.80-8.00); NEUTROPHILS PERCENT AUTO 79.9 % (41-71); PLATELET COUNT,PLT 219 10^3/uL (150-400); RED BLOOD CELL COUNT 3.53 x10^6/uL (4.50-6.00); WHITE BLOOD CELL COUNT,WBC 8.6 10^3/uL (4.0-11.0)
[2024-09-07 07:43] LABS: CALCIUM 9.5 mg/dL (8.4-10.1); CREATININE 1.9 mg/dL (0.7-1.3); EST CRCL DRUG DOSING (CG) 24.72 mL/min; POTASSIUM,K 4.5 mEq/L (3.5-5.0)
[2024-09-07] MEDS: VANCOmycin 750 MG in Sodium Chloride 0.9% 250 ML IV SCH (15:46)
[2024-09-08 07:41] LABS: BASOPHILS ABSOLUTE AUTO 0.05 10^3/uL (0.00-0.50); BASOPHILS PERCENT AUTO 0.5 % (0-1); EOSINOPHILS ABSOLUTE AUTO 0.18 10^3/uL (0.00-1.50); HEMATOCRIT 37.1 % (42.0-52.0); HEMOGLOBIN 11.7 g/dL (14.0-18.0); IMMATURE GRAN ABSOLUTE AUTO 0.02 10^3/uL (0.00-0.49); IMMATURE GRAN PERCENT AUTO 0.2 % (0.0-4.9); LYMPHOCYTES PERCENT AUTO 8.8 % (24-44); MEAN CORPUSCULAR HEMOGLOBIN 30.8 pg (27.0-32.0); MEAN CORPUSCULAR HGB CONC 31.5 g/dL (32.0-36.0); MEAN CORPUSCULAR VOLUME 97.6 fL (83.0-97.0); MONOCYTES ABSOLUTE AUTO 0.88 10^3/uL (0.00-1.50); MONOCYTES PERCENT AUTO 9.7 % (0-10); NEUTROPHILS ABSOLUTE AUTO 7.18 x10^3/uL (1.80-8.00); NEUTROPHILS PERCENT AUTO 78.8 % (41-71); PLATELET COUNT,PLT 220 10^3/uL (150-400); WHITE BLOOD CELL COUNT,WBC 9.1 10^3/uL (4.0-11.0)
[2024-09-08 07:45] LABS: CALCIUM 9.6 mg/dL (8.4-10.1); CREATININE 1.9 mg/dL (0.7-1.3); EST CRCL DRUG DOSING (CG) 24.72 mL/min; POTASSIUM,K 4.5 mEq/L (3.5-5.0)
[2024-09-09 08:16] LABS: POTASSIUM,K 3.8 mEq/L (3.5-5.0)
[2024-09-09 08:17] LABS: BASOPHILS ABSOLUTE AUTO 0.04 10^3/uL (0.00-0.50); BASOPHILS PERCENT AUTO 0.5 % (0-1); CALCIUM 9.5 mg/dL (8.4-10.1); CREATININE 1.8 mg/dL (0.7-1.3); EOSINOPHILS ABSOLUTE AUTO 0.21 10^3/uL (0.00-1.50); EOSINOPHILS PERCENT AUTO 2.9 % (0-6); EST CRCL DRUG DOSING (CG) 26.09 mL/min; HEMOGLOBIN 11.5 g/dL (14.0-18.0); IMMATURE GRAN ABSOLUTE AUTO 0.02 10^3/uL (0.00-0.49); IMMATURE GRAN PERCENT AUTO 0.3 % (0.0-4.9); LYMPHOCYTES ABSOLUTE AUTO 0.93 10^3/uL (0.60-5.00); LYMPHOCYTES PERCENT AUTO 12.7 % (24-44); MEAN CORPUSCULAR HEMOGLOBIN 31.2 pg (27.0-32.0); MEAN CORPUSCULAR HGB CONC 31.9 g/dL (32.0-36.0); MEAN CORPUSCULAR VOLUME 97.6 fL (83.0-97.0); MONOCYTES ABSOLUTE AUTO 0.76 10^3/uL (0.00-1.50); MONOCYTES PERCENT AUTO 10.4 % (0-10); NEUTROPHILS ABSOLUTE AUTO 5.35 x10^3/uL (1.80-8.00); NEUTROPHILS PERCENT AUTO 73.2 % (41-71); PLATELET COUNT,PLT 203 10^3/uL (150-400); RED BLOOD CELL COUNT 3.69 x10^6/uL (4.50-6.00); WHITE BLOOD CELL COUNT,WBC 7.3 10^3/uL (4.0-11.0)
[2024-09-09] MEDS ORDERED: Polyethylene Glycol 3350 Powder 17 GM Packet PO PRN (11:42)
[2024-09-10 07:57] LABS: BASOPHILS ABSOLUTE AUTO 0.03 10^3/uL (0.00-0.50); BASOPHILS PERCENT AUTO 0.4 % (0-1); EOSINOPHILS ABSOLUTE AUTO 0.18 10^3/uL (0.00-1.50); EOSINOPHILS PERCENT AUTO 2.4 % (0-6); HEMATOCRIT 36.9 % (42.0-52.0); HEMOGLOBIN 11.7 g/dL (14.0-18.0); IMMATURE GRAN ABSOLUTE AUTO 0.02 10^3/uL (0.00-0.49); IMMATURE GRAN PERCENT AUTO 0.3 % (0.0-4.9); LYMPHOCYTES ABSOLUTE AUTO 1.01 10^3/uL (0.60-5.00); LYMPHOCYTES PERCENT AUTO 13.5 % (24-44); MEAN CORPUSCULAR HEMOGLOBIN 30.9 pg (27.0-32.0); MEAN CORPUSCULAR HGB CONC 31.7 g/dL (32.0-36.0); MEAN CORPUSCULAR VOLUME 97.4 fL (83.0-97.0); MONOCYTES ABSOLUTE AUTO 0.73 10^3/uL (0.00-1.50); MONOCYTES PERCENT AUTO 9.7 % (0-10); NEUTROPHILS ABSOLUTE AUTO 5.53 x10^3/uL (1.80-8.00); NEUTROPHILS PERCENT AUTO 73.7 % (41-71); PLATELET COUNT,PLT 220 10^3/uL (150-400); RED BLOOD CELL COUNT 3.79 x10^6/uL (4.50-6.00); WHITE BLOOD CELL COUNT,WBC 7.5 10^3/uL (4.0-11.0)
[2024-09-10 08:06] LABS: CALCIUM 9.9 mg/dL (8.4-10.1); CREATININE 1.7 mg/dL (0.7-1.3); EST CRCL DRUG DOSING (CG) 27.63 mL/min; POTASSIUM,K 3.8 mEq/L (3.5-5.0)
[2024-09-17 10:03] LABS: BASOPHILS ABSOLUTE AUTO 0.02 10^3/uL (0.00-0.50); BASOPHILS PERCENT AUTO 0.3 % (0-1); EOSINOPHILS ABSOLUTE AUTO 0.04 10^3/uL (0.00-1.50); EOSINOPHILS PERCENT AUTO 0.5 % (0-6); HEMATOCRIT 37.7 % (42.0-52.0); HEMOGLOBIN 11.7 g/dL (14.0-18.0); IMMATURE GRAN ABSOLUTE AUTO 0.02 10^3/uL (0.00-0.49); IMMATURE GRAN PERCENT AUTO 0.3 % (0.0-4.9); LYMPHOCYTES ABSOLUTE AUTO 0.69 10^3/uL (0.60-5.00); LYMPHOCYTES PERCENT AUTO 8.8 % (24-44); MEAN CORPUSCULAR HEMOGLOBIN 30.5 pg (27.0-32.0); MEAN CORPUSCULAR VOLUME 98.4 fL (83.0-97.0); MONOCYTES ABSOLUTE AUTO 0.54 10^3/uL (0.00-1.50); MONOCYTES PERCENT AUTO 6.9 % (0-10); NEUTROPHILS ABSOLUTE AUTO 6.49 x10^3/uL (1.80-8.00); NEUTROPHILS PERCENT AUTO 83.2 % (41-71); PLATELET COUNT,PLT 170 10^3/uL (150-400); RED BLOOD CELL COUNT 3.83 x10^6/uL (4.50-6.00); WHITE BLOOD CELL COUNT,WBC 7.8 10^3/uL (4.0-11.0)
[2024-09-17 10:31] LABS: ALBUMIN 2.5 g/dL (3.4-5.0); BILIRUBIN TOTAL 0.5 mg/dL (0.0-1.0); CALCIUM 10.3 mg/dL (8.4-10.1); CREATININE 1.8 mg/dL (0.7-1.3); EST CRCL DRUG DOSING (CG) 28.91 mL/min; MAGNESIUM 2.3 mg/dL (1.8-2.4); POTASSIUM,K 3.8 mEq/L (3.5-5.0); PROTEIN TOTAL,TP 6.6 g/dL (6.4-8.2)
[2024-09-17] MEDS: Bumetanide 2.5 MG/10 ML MDV IVPUSH SCH (17:46)
[2024-09-18 14:28] LABS: CORONAVIRUS COVID-19 NAA NEGATIVE (NEGATIVE); INFLUENZA A NAA NEGATIVE (NEGATIVE); INFLUENZA B NAA NEGATIVE (NEGATIVE)
[2024-09-19 07:40] LABS: BASOPHILS ABSOLUTE AUTO 0.04 10^3/uL (0.00-0.50); BASOPHILS PERCENT AUTO 0.5 % (0-1); EOSINOPHILS ABSOLUTE AUTO 0.16 10^3/uL (0.00-1.50); EOSINOPHILS PERCENT AUTO 2.1 % (0-6); HEMATOCRIT 37.2 % (42.0-52.0); HEMOGLOBIN 11.7 g/dL (14.0-18.0); IMMATURE GRAN ABSOLUTE AUTO 0.01 10^3/uL (0.00-0.49); IMMATURE GRAN PERCENT AUTO 0.1 % (0.0-4.9); LYMPHOCYTES ABSOLUTE AUTO 0.96 10^3/uL (0.60-5.00); LYMPHOCYTES PERCENT AUTO 12.5 % (24-44); MEAN CORPUSCULAR HGB CONC 31.5 g/dL (32.0-36.0); MEAN CORPUSCULAR VOLUME 98.4 fL (83.0-97.0); MONOCYTES ABSOLUTE AUTO 0.88 10^3/uL (0.00-1.50); MONOCYTES PERCENT AUTO 11.5 % (0-10); NEUTROPHILS ABSOLUTE AUTO 5.61 x10^3/uL (1.80-8.00); NEUTROPHILS PERCENT AUTO 73.3 % (41-71); PLATELET COUNT,PLT 152 10^3/uL (150-400); RED BLOOD CELL COUNT 3.78 x10^6/uL (4.50-6.00); WHITE BLOOD CELL COUNT,WBC 7.7 10^3/uL (4.0-11.0)
[2024-09-19 07:54] LABS: ALBUMIN 2.4 g/dL (3.4-5.0); BILIRUBIN TOTAL 0.8 mg/dL (0.0-1.0); CALCIUM 10.3 mg/dL (8.4-10.1); CREATININE 1.3 mg/dL (0.7-1.3); EST CRCL DRUG DOSING (CG) 40.03 mL/min; MAGNESIUM 2.3 mg/dL (1.8-2.4); POTASSIUM,K 3.6 mEq/L (3.5-5.0); PROTEIN TOTAL,TP 6.3 g/dL (6.4-8.2)
[2024-09-21 08:58] VITALS: BP 127/79; PULSE 85
[2024-09-21] MEDS: Morphine 4 MG/ML VIAL IVPUSH ONE (10:47)
[2024-09-21] MEDS: Hyoscyamine 0.125 MG Tab.SL SL SCH (10:47)
[2024-09-21] MEDS: Morphine 4 MG/ML VIAL IVPUSH SCH (19:11)
[2024-09-22] MEDS: Haloperidol Lactate 2 MG/ML Oral Soln 15 ML Bottle PO PRN (02:35)
[2024-09-22] MEDS: Morphine 2 MG/ML SYRINGE IVPUSH PRN (13:08)
[2024-09-22] MEDS: Hyoscyamine 0.125 MG Tab.SL SL PRN (18:44)
[2024-09-22] MEDS ORDERED: Acetaminophen 325 MG Tab PO PRN (19:04)
== END 2024-09-23 13:28 | disposition expired | DRG 947 ==
LOC: CC.MS 10:38 → UNDOADMIN 10:38 → CC.MS 11:09
PROVIDERS: ADMIT Nurse Practitioner; ATTEND Physician Assistant Medical
PROC: 3E03329 Introduction of Other Anti-infective into Peripheral Vein, Percutaneous Approach (ICD-10-PCS; 2024-08-25)
PROC: 0T9B70Z Drainage of Bladder with Drainage Device, Via Natural or Artificial Opening (ICD-10-PCS; 2024-09-06)
PROC: 0W9B3ZZ Drainage of Left Pleural Cavity, Percutaneous Approach (ICD-10-PCS; principal; 2024-09-18)
DX: R53.1 Weakness (principal); J18.9 Pneumonia, unspecified organism; J90 Pleural effusion, not elsewhere classified; Z51.5 Encounter for palliative care; Z66 Do not resuscitate; N18.9 Chronic kidney disease, unspecified; R53.81 Other malaise; I50.9 Heart failure, unspecified; M25.549 Pain in joints of unspecified hand; M54.50 Low back pain, unspecified; G89.29 Other chronic pain; Y95 Nosocomial condition; Z87.891 Personal history of nicotine dependence
CPT/HCPCS: 0240U; 36415; 51702; 71045; 71046; 71250; 80048; 80053; 80202; 81001; 82800; 83615; 83735; 83880; 84157; 85025; 85610; 87040; 87070; 87205; 88112; 88305; 94640; 94761; 97110-GP; 97116-GP; 97164-GP; A9270-GY; J1939; J2270; J2543; J3370; J3372; J7050